=== PATIENT | female | born 1980 | race Caucasian/White ===

== ENCOUNTER → 2021-09-12 | Outpatient (CLI) | payer BC | LOC: M.MRI 13:16 | PROVIDERS: ATTEND Family Medicine | DX: S83.8X1A Sprain of other specified parts of right knee, initial encounter (principal); M25.461 Effusion, right knee; X58.XXXA Exposure to other specified factors, initial encounter; Y93.89 Activity, other specified; Y92.89 Other specified places as the place of occurrence of the external cause; Y99.8 Other external cause status ==